=== PATIENT | male | born 2000 ===

== ENCOUNTER 2021-11-16 01:05 | Emergency (ER) | payer BC ==
[~2021-11-16] VITALS: Ht 185.4 cm; Wt 65.9 kg
[2021-11-16 01:10] VITALS: TEMP 98
[2021-11-16 02:05] LABS: BASO % 0.3 % (0.0-2.0); EOS # 0.2 K/mm3 (0.0-0.7); EOS % 3.1 % (0.0-4.0); GRAN # 2.8 K/mm3 (1.4-6.5); HEMATOCRIT 42.2 % (42.0-52.0); HEMOGLOBIN 15.1 g/dl (13.5-18.0); LYMPH # 2.3 K/mm3 (1.2-3.4); LYMPH % 39.4 % (20.0-51.0); MEAN CELL VOLUME 91 fl (80.0-100.0); MEAN CORPUSCULAR HEMOGLOBIN 32 pg (27-31); MEAN CORPUSCULAR HGB CONC 36 g/dl (33.0-37.0); MEAN PLATELET VOLUME 9.7 fl (7.4-10.4); MONO # 0.5 K/mm3 (0.1-0.6); MONO % 8.9 % (1.7-9.3); PLATELET COUNT 243 K/mm3 (130-400); RED BLOOD COUNT 4.66 M/mm3 (4.20-5.60); REDCELL DISTRIBUTION WIDTH-CV 12.6 % (11.5-14.5)
[2021-11-16 02:09] LABS: ALBUMIN 4.8 gm/dL (3.5-5.0); BILIRUBIN,TOTAL 0.9 mg/dL (0.2-1.2); CALCIUM 9.3 mg/dL (8.4-10.2); CREATININE, serum 1.23 mg/dL (0.72-1.25); POTASSIUM 3.9 mmol/L (3.5-4.5); TOTAL PROTEIN 7.6 gm/dL (6.2-8.1)
[2021-11-16 02:27] LABS: C-REACTIVE PROTEIN 0.05 mg/dL (0.00-0.50)
[2021-11-16 02:41] VITALS: BP 116/65; PULSE 63
[2021-11-16] MEDS ORDERED: CARAFATE 1GM1 G PO (02:54)
[2021-11-16] MEDS ORDERED: PROTONIX 40MG T40 MG PO (02:54)
== END 2021-11-16 02:48 | disposition home or self-care (01) ==
LOC: COL.ER 01:05
PROVIDERS: Nurse Practitioner
DX: R10.13 Epigastric pain (principal); K21.9 Gastro-esophageal reflux disease without esophagitis